=== PATIENT | female | born 1975 | race Caucasian/White ===

== ENCOUNTER 2016-06-20 20:04 | Emergency (ER) | payer OTHER ==
[2016-06-20 20:47] LABS: BASOPHIL 0.2 % (0-2); EOSINOPHIL 4.1 % (0-5); HCT 41.2 % (37.0-47.0); HGB 14.4 g/dl (12.5-16.0); LYMPHOCYTE 26.9 % (15-48); MCH 30.7 pg (25.0-31.0); MCV 87.8 fL (78.0-100.0); MONOCYTE 9.1 % (0-12); MPV 9.3 fL (6.0-9.5); NEUTROPHIL 59.7 % (41-80); PLT 303 K/uL (150-400); RBC 4.69 M/uL (4.20-5.40); RDW 13.2 % (11.5-14.0); WBC 12.3 K/uL (4.0-10.5)
[2016-06-20 21:04] LABS: PRO-BNP 20 pg/mL (0-125); TROPONIN T < 0.010 ng/mL
[2016-06-20 21:07] LABS: ALBUMIN 4.2 g/dL (3.5-5.0); BILIRUBIN - TOTAL 0.7 mg/dL (0.1-1.0); CREATININE 0.7 mg/dL (0.5-1.0); GLOBULIN (CALCULATION) 3.3 g/dL (2.2-4.2); POTASSIUM 3.6 mmol/L (3.5-5.1); TOTAL PROTEIN 7.5 g/dL (6.4-8.3)
== END 2016-06-20 22:05 | disposition home or self-care (01) ==
LOC: FER 20:04
PROVIDERS: Emergency Medicine Emergency Medical Services
DX: R06.02 Shortness of breath (principal); R07.1 Chest pain on breathing; R11.2 Nausea with vomiting, unspecified; F17.200 Nicotine dependence, unspecified, uncomplicated
CPT/HCPCS: 36415; 71020; 80053; 83880; 84484; 85025; 85379; 93005; 94640; 94664; J1885; J2930

== ENCOUNTER 2021-02-10 10:30 | Emergency (ER) | payer OTHER ==
[~2021-02-10] VITALS: Ht 170.2 cm; Wt 129.3 kg
[~2021-02-10 10:30] MED LIST: MOTRIN600 MG PO; ROBAXIN500 MG PO
[2021-02-10 13:49] LABS: BASOPHIL 0.9 % (0-2); HGB 14.3 g/dl (12.5-16.0); LYMPHOCYTE 28.6 % (15-48); MCH 32.1 pg (25.0-31.0); MCHC 33.3 g/dL (32.0-36.0); MCV 96.4 fL (78.0-100.0); MONOCYTE 18.4 % (0-12); MPV 9.5 fL (6.0-9.5); NEUTROPHIL 48.7 % (41-80); NRBC 0; PLT 246 K/uL (150-400); RBC 4.46 M/uL (4.20-5.40); WBC 5.4 K/uL (4.0-10.5)
[2021-02-10 13:53] LABS: PROTHROMBIN TIME 12.6 SECONDS (11.8-13.4); PTT 32.9 SECONDS (24.4-34.7)
[2021-02-10 14:01] LABS: BILIRUBIN NEGATIVE (NEGATIVE); BLOOD NEGATIVE Ery/uL (NEGATIVE); CLARITY CLEAR (CLEAR); COLOR YELLOW (YELLOW); GLUCOSE (U) NORMAL (NORMAL); LEUKOCYTES NEGATIVE Leu/uL (NEGATIVE); NITRITE NEGATIVE (NEGATIVE); PROTEIN NEGATIVE (NEGATIVE); UROBILINOGEN 0.2 mg/dL (0.2-1.0)
[2021-02-10 14:15] LABS: ALBUMIN 3.7 g/dL (3.4-5.0); ALKALINE PHOSHATASE 85 U/L (46-116); ALT 42 U/L (14-59); AST 30 U/L (15-37); BILIRUBIN - TOTAL 0.3 mg/dL (0.2-1.0); BUN 6 mg/dL (7-18); CHLORIDE 103 mmol/L (98-107); CO2 (BICARBONATE) 28 mmol/L (21-32); CREATININE 0.75 mg/dL (0.51-0.95); GLOBULIN (CALCULATION) 3.9 g/dL; GLUCOSE 97 mg/dL (74-106); POTASSIUM 3.8 mmol/L (3.5-5.1); TOTAL PROTEIN 7.6 g/dL (6.4-8.2)
== END 2021-02-10 18:56 | disposition home or self-care (01) ==
LOC: FER 10:30
PROVIDERS: Emergency Medicine
DX: U07.1 COVID-19 (principal); H53.2 Diplopia; I10 Essential (primary) hypertension; F17.210 Nicotine dependence, cigarettes, uncomplicated
CPT/HCPCS: 36415; 70551; 80053; 81003; 84484; 85025; 85610; 85730; 86140; 93005; J1200; J1885; J2765; J7030